=== PATIENT | female | born 1990 | race Caucasian/White ===

== ENCOUNTER → 2017-05-06 | Outpatient (CLI) | payer BC ==
--- NOTE | 2017-05-06 15:41 | KCIC ---
INDICATION: Fourth digit splinter with palpable abnormality. TECHNIQUE: 3 views of the right hand contains 4 images. FINDINGS: BB was placed at the area concern. There is soft tissue swelling about the proximal phalanx of the fourth digit and proximal interphalangeal joint. No radiopaque foreign body is apparent. There is no fracture or dislocation. There is no gross bone destruction. IMPRESSION: Soft tissue swelling. Negative for radiopaque foreign body. Electronically signed by: Narciso Falk MD (05/06/2017 3:38 PM) [id number]
== END | disposition home or self-care (01) ==
LOC: KCIC 15:02
PROVIDERS: ATTEND Physician Assistant
DX: S60.454A Superficial foreign body of right ring finger, initial encounter (principal); X58.XXXA Exposure to other specified factors, initial encounter; Y93.89 Activity, other specified; Y92.89 Other specified places as the place of occurrence of the external cause; Y99.8 Other external cause status
CPT/HCPCS: 73130